=== PATIENT | female | born 1990 | race Caucasian/White ===

== ENCOUNTER 2019-06-24 16:23 | Emergency (ER) | payer BC ==
--- NOTE | 2019-06-24 21:48 | RAD ---
LEFT ANKLE THREE VIEWS: 06/24/19 No fracture was seen. The ankle joint appears normal and the articular surfaces are smooth. IMPRESSION: No acute finding. POS: HOME
== END 2019-06-24 17:15 | disposition home or self-care (01) ==
LOC: BURERS 16:23
DX: S93.492A Sprain of other ligament of left ankle, initial encounter (principal); X50.1XXA Overexertion from prolonged static or awkward postures, initial encounter